=== PATIENT | female | born 1990 | race Caucasian/White ===

== ENCOUNTER 2020-10-31 12:01 | Day surgery (SDC) | payer MEDICAID ==
[~2020-10-31] VITALS: Ht 152.4 cm; Wt 52.3 kg
--- NOTE | ~2020-10-31 | HEMODYNAMI ---
PATIENT:KARLA LOCKETT MEDICAL RECORD: [id number] : 89 LOCATION:[facility] ADMISSION DATE: 10/31/20 Generatedon:115:15 Patient name: KARLA LOCKETT Patient #: [id number] SSN: : 1990 Date of study: 10/31/2020 Page: Of Hemodynamic Procedure Report Patient Data Patient Demographics Procedure consent was obtained First Name: KARLA Gender: Female Last Name: CATHRYN : 1990 Patient #: [id number] Age: 30 year(s) Race: Unknown Additional ID: [id number] Contact details Address: [address] [place] [address] State: [place] City: [place] Zip code: [address] Past Medical History Allergies: No known allergies Admission Admission Data Admission Date: 10/31/2020 Admission Time: 12:01 Procedure Procedure Types Cath Procedure Peripheral Cath Diagnostic Procedure Venography IVC/SVC IVC Filter Retreival Procedure Description Procedure Date Procedure Date: 10/31/2020 Procedure Start Time: 14:09 Procedure Staff Name Function Audra Rhoades RT Director Database Milan Gabriel RT Scrub Zack Sesay MD Performing Physician Ismael TOMLIN RN Nurse Procedure Data Cath Procedure Fluoroscopy Diagnostic fluoroscopy Total fluoroscopy Time: 22 time: 22 min min Diagnostic fluoroscopy Total fluoroscopy dose: 315 dose: 315 mGy mGy Contrast Material Contrast Material Type Amount (ml) Isovue 300 20 Diagnostic catheters Device Type Used For End Catheter Placement [employer] ULTRA BOLUS FLUSH 5Fr 65CM catheter ([id number]) Procedure Medications Medication Administration Route Dosage Lidocaine 1% added to field 20 Heparin Flush Bag added to field 1 bags (1000units/500ml NS) Refer to Anesthesia Notes for Sedation Medications Hemodynamics Rest Heart Rate: 89 (bpm) Snapshots Pre Cath Intra NCS Post Cath Vital Signs Time Heart Resp SPO2 etCO2 NIBP (mmHg) Rhythm Pain Sedation Rate (ipm) (%) (mmHg) Status Level (bpm) 14:00:31 86 6 31.2 131/79(101) NSR 0 (11) 10(A) , No pain 14:04:53 82 12 100 26.6 123/74(86) NSR 0 (11) 10(A) , No pain 14:08:57 84 100 0 113/71(87) NSR 0 (11) 10(A) , No pain 14:13:56 96 8 72 31.9 Measuring NSR 0 (11) 10(A) , No pain 14:14:08 93 7 95 31.9 114/76(93) NSR 0 (11) 10(A) , No pain 14:18:14 96 18 97 35.8 107/61(76) NSR 0 (11) 10(A) , No pain 14:22:18 100 16 95 31.2 104/58(80) NSR 0 (11) 10(A) , No pain 14:26:24 106 16 94 38.1 100/51(74) NSR 0 (11) 10(A) , No pain 14:30:27 106 15 94 38 98/47(73) NSR 0 (11) 10(A) , No pain 14:34:31 103 16 93 41.1 99/48(76) NSR 0 (11) 10(A) , No pain 14:38:35 105 16 93 40.3 93/46(69) NSR 0 (11) 10(A) , No pain 14:42:38 104 15 93 45.7 92/42(72) NSR 0 (11) 10(A) , No pain 14:46:42 101 15 93 42.6 84/41(70) NSR 0 (11) 10(A) , No pain 14:50:42 97 15 92 44.1 92/43(68) NSR 0 (11) 10(A) , No pain 14:54:45 96 14 92 42.6 87/41(70) NSR 0 (11) 10(A) , No pain 14:57:19 96 14 92 43.4 90/42(61) NSR 0 (11) 10(A) , No pain 15:05:28 86 14 99 35.8 98/48(68) NSR 0 (11) 10(A) , No pain Medications Time Medication Route Dose Verified Delivered Reason Notes Effe ctiveness by by 14:00:46 Lidocaine 1% added 20ml Zack Dixon for local to vial Lázaro Sesay anesthetic field MD [place] 14:00:57 Refer to Zack Dixon Anesthesia Notes Lázaro Sesay for Sedation MD [place] Medications 14:00:57 Heparin Flush added 1 Zack Dixon used for Bag to bags Lázaro Sesay procedure (1000units/500ml field MD [place] NS) Procedure Log Time Note 13:32:21 Use device set IR Diagnostic 13:58:08 BENTSON 145cm wire ([id number]) opened to sterile field. 13:58:11 Micropuncture VSI 4FR kit opened to sterile field. 13:58:12 Tegaderm 4 x 4 (1626W) opened to sterile field. 13:58:13 Bag Decanter (2002S) opened to sterile field. 13:58:13 Sterile Angiographic Pack opened to sterile field. 13:58:16 COOK 16FR 45 CM SHEATH opened to sterile field. 13:58:51 DILATOR, VESSEL 11/20 opened to sterile field. 13:58:53 DILATOR, VESSEL 14/20 opened to sterile field. 13:58:55 DILATOR, VESSEL 12/20 opened to sterile field. 13:59:03 Time tracking: Regular hours (M-F 7:00 - 5:00) 13:59:26 Plan of Care:Hemodynamics will remain stable., Cardiac rhythm will remain stable., Comfort level will be maintained., Respiratory function will remain adequate., Patient/ family verbilizes understanding of procedure., Procedure tolerated without complication., Recovers from procedure without complications.. 13:59:32 Patient received from Outpatients to IR Alert and oriented. Tansferred to table in Supine position. 13:59:34 Signed procedure consent form obtained from patient. 13:59:36 ECG and BP/O2 sat monitors applied to patient. 13:59:39 Vital chart was started 13:59:50 Baseline sample Acquired. 13:59:54 Full Disclosure recording started 13:59:56 - 14:00:01 H&P Date Dictated: 10/31/2020 Within 30 days and on chart., H&P Addendum completed by physician on day of procedure. (MUST COMPLETE FOR ALL OUTPATIENTS). 14:00:02 Pre-procedure instructions explained to patient. 14:00:03 Pre-op teaching completed and patient verbalized understanding. 14:00:05 Family unavailable. 14:00:07 Patient NPO since Midnight. 14:00:24 Patient allergic to No known allergies 14:00:27 Is the patient allergic to Iodine/contrast media? No. 14:00:40 Is patient on blood thinner?No 14:00:46 Lidocaine 1% 20ml vial added to field was administered by Zack mann MD; for local anesthetic; Verbal order read back and verified. 14:00:50 Patient diabetic? No. 14:00:54 - 14:00:55 ----Pre-sedation anethsthesia assessment.---- 14:00:57 Refer to Anesthesia Notes for Sedation Medications was administered by Zack Sesay MD; ; Verbal order read back and verified. 14:00:57 Heparin Flush Bag (1000units/500ml NS) 1 bags added to field was administered by Zack Sesay MD; used for procedure; Verbal order read back and verified. 14:01:00 Previous problem with sedation/anesthesia? No ? 14:01:03 Snore? No 14:01:05 Sleep apnea? No 14:01:07 Deviated septum? No 14:01:09 Opens mouth fully? Yes 14:01:11 Sticks out tongue? Yes 14:01:16 Airway obstruction? Yes asthma 14:01:21 Dentures? No ? 14:01:29 Right neck area was prepped with chlora-prep and draped in sterile fashion 14:01:32 Alarms reviewed by Alvaro Schulte 14:01:36 - 14:02:17 Fire Safety Assessment: A--An alcohol-based skin anteseptic being used preoperatively., B--The operative or invasive procedure is being performed above the xiphoid process or in the oropharynx., C--Open oxygen or nitrous oxide is being used. 14:08:10 --------ALL STOP TIME OUT------ 14:08:10 Physician arrived 14:08:11 Final Timeout: patient, procedure, and site verified with staff and physician. All members of the team are in agreement. 14:08:41 2) 60-89 Mildly reduced kidney function, and other findings (as for stage 1) point to kidney disease. 14:08:50 Venous access obtained using ultrasound guidance. 14:09:05 Procedure started. 14:09:12 Local anesthetic to right IJ vein with Lidocaine 1% by Zack Sesay MD.INITIAL ACCESS ONLY 14:19:47 A [employer] ULTRA BOLUS FLUSH 5Fr 65CM catheter ([id number]) was advanced over the wire and used for . 14:19:48 SHEATH 6FR [place] ([id number]) opened to sterile field. 14:20:23 Huizar 180 wire ([id number]) opened to sterile field. 14:55:49 Procedure ended.(Physican Out) 14:56:18 Fluoroscopy time 22.00 minutes. 14:56:28 Fluoroscopy dose: 315 mGy 14:56:28 Flurop Dose total: 315 14:56:35 Contrast amount:Isovue 300 20ml. 15:00:56 Procedure and supply charges have been captured, reviewed, submitted an d are correct. 15:01:07 Report given to Outpatients. 15:01:51 Vital chart was stopped 15:01:58 Full Disclosure recording stopped Device Usage Item Name Manufacture Quantity Catalog Number Hospital Part [facility] Lot# / Charge Number Stock Stock Serial# Code TURNER 145cm [facility] 1 [id number] 5 wire ([id number]) Micropuncture VSI VASCULAR 1 [id number] 557057 [id number] 5 VSI 4FR kit SOLUTIONS Tegaderm 4 x 4 3M 1 1626W 676392 [id number] 729880 5 (1626W) Sterile Cardinal 1 [id number] 940749 426589 5 Angiographic Health Pack Bag Decanter [employer] 1 [id number] 41026 701399 5 () [employer] COOK 16FR 45 [employer] 1 [id number] 069812 002514 483200 5 CM SHEATH DILATOR, [employer] 1 [id number] 359557 95091 [id number] 5 [id number] VESSEL 11/20 DILATOR, [employer] 1 [id number] 269189 171438 612770 5 [id number] VESSEL 14/20 DILATOR, [employer] 1 [id number] 151957 517361 401902 5 [id number] VESSEL 12/20 Merit ULTRA Merit 1 [id number] 425048 538604 5 BOLUS FLUSH Medical 5Fr 65CM catheter ([id number]) SHEATH 6FR [employer] 1 [id number] 382666 876268 [id number] 40 [place] (HEU113) Huizar 180 wire [employer] 1 D54013 586468 337982 [id number] 5 [id number] ([id number]) Signature Audit [place] Stage Time Signature Unsigned Intra-Procedure 10/31/2020 Audra Yates [facility] RT 3:01:48 PM RT(R) (R) (CV) 10/31/2020 3:04:15 PM Intra-Procedure 10/31/2020 Audra Rhoades 3:15:45 PM RT(R) [facility] [address] [place] [address]
[2020-10-31 12:29] LABS: BASOPHILS 0.5 % (0-2); EOSINOPHILS 5.4 % (0-7); HEMATOCRIT 43.2 % (36.0-48.0); HEMOGLOBIN 14.7 g/dL (12-16); IMMATURE GRANULOCYTES 0.1 % (0-5); LYMPHOCYTE ABS# 3.16 10x3/uL (1.18-3.74); LYMPHOCYTES 42.4 % (15-50); MCH 31.4 pg (26.0-34.0); MCV 92.3 fL (80.0-100.0); MEAN PLATELET VOLUME 9.1 fL (7.4-10.4); MONOCYTES 8.2 % (2-11); NEUTROPHIL ABS# 3.23 10x3/uL (1.56-6.13); NEUTROPHILS 43.4 % (40-80); PLATELET COUNT 352 10x3/uL (130-400); RBC 4.68 10x6/uL (4.00-5.40); RDW 12.3 % (11.5-14.5); WBC 7.5 10x3/uL (4.8-10.8)
[2020-10-31 12:37] LABS: CALC OSMOLALITY 275 mosm/kg (275-300); CALCIUM 8.5 mg/dL (8.5-10.1); CARBON DIOXIDE 27.7 mmol/L (21.0-32.0); CHLORIDE - SERUM 103 mmol/L (98-107); CREATININE - SERUM 0.9 mg/dL (0.6-1.3); GLUCOSE 81 mg/dL (74-106); POTASSIUM - SERUM 4.1 mmol/L (3.5-5.1); SODIUM 138 mmol/L (136-145); UREA NITROGEN 15 mg/dL (7-18); eGFR NON AFRICAN AMERICAN 78 mL/min (90-120)
[2020-10-31 12:38] LABS: APTT 27.6 SECONDS (22.8-39.4); PROTIME 12.2 SECONDS (11.6-15.0)
[2020-10-31] MEDS ORDERED: GABAPENTIN300 MG PO (13:28)
[2020-10-31] MEDS ORDERED: PLAVIX75 MG PO (13:28)
[2020-10-31] MEDS ORDERED: ALBUTEROL0.63 MG/3 INH (13:29)
[2020-10-31] MEDS ORDERED: SYMBICORT 16010.2 GM INH (13:29)
[2020-10-31 13:30] VITALS: BP 142/80; Ht 152.4 cm; Wt 52.3 kg
--- NOTE | 2020-10-31 17:02 | NUR ---
TORADOL 15 MG IV GIVEN FOR PAIN TO RIGHT NECK. 1720 DISCHARGE INSTRUCTIONS REVIEWED WITH PT AND SHE VOICED UNDERSTANDING. COPY OF DC INSTRUCTIONS PROVIDED. IV THEN DC'D WITH CATH TIP INTACT. NOTED AREA TO RIGHT SIDE OF NECK LOOKED LARGER ONCE PT SAT UP, AREA TENDER TO TOUCH. 172 NOTIFIED SADA IN RADIOLOGY ABOUT NECK. SHE SAID SHE WILL COME AND ASSESS. 172 LINDA WITH RADIOLOGY CAME TO PT'S BEDSIDE, ASSESSED RIGHT SIDE OF NECK, REMOVED DRESSING. SAID NO HEMATOMA PRESENT SWELLLING SUBSIDES WHEN PT LIES DOWN ON HER BACK. HE REMOVED PRESENT DRESSING AND APPLIED A CLEAN GAUZE DRESSING SECURED WITH TEGADERM. PER LINDA, OK FOR PT TO GO HOME. 174 PT DISCHARGED VIA W/C, ACCOMPANIED BY EVIE MORFIN, TO POV WITH SPOUSE DRIVING. ALL BELONGINGS AND DC PACKET WITH PT. NO C/O OF PAIN VOICED.
== END 2020-10-31 17:41 | disposition home or self-care (01) ==
LOC: D.SP 12:01 → D.RAD 13:30 → D.SP 17:41
PROVIDERS: ATTEND Radiology Diagnostic Radiology
DX: T85.9XXA Unspecified complication of internal prosthetic device, implant and graft, initial encounter (principal)